=== PATIENT | male | born 1980 | race Caucasian/White ===

== ENCOUNTER 2016-06-30 21:08 | Observation (INO) | payer OTHER ==
[2016-06-30] MEDS ORDERED: fentaNYL 100 MCG/2 ML INJ IVP ONE (21:29)
[2016-06-30] MEDS ORDERED: ONDANSETRON 4 MG/2 ML VIAL IVP ONE (21:29)
[2016-06-30] MEDS ORDERED: NS 1,000 ML IV ONE (21:29)
--- NOTE | 2016-06-30 21:35 | EDPHY ---
H & P Smoking Status: Current every day smoker Time Seen by Provider: 06/30/16 21:21 HPI/ROS: CHIEF COMPLAINT: Nausea, vomiting, abdominal pain HISTORY OF PRESENT ILLNESS: 36-year-old male presents to the emergency department with abrupt onset of abdominal pain and vomiting. Symptoms began around 6:00 p.m. this evening. Patient states that when he got home from work this evening he was feeling nauseous. He had a beer and then tried to eat something and became extremely nauseous and vomited 6 or 7 times. He had a normal solid bowel movement. Denies diarrhea. No melena. No blood in his stool. He denies chest pain or difficulty breathing. He feels that the abdominal pain is colicky and comes and goes. He feels more of a dull ache currently. Denies reported trauma. Denies ill contacts. Denies recent travel. REVIEW OF SYSTEMS: Constitutional: No fever, no chills. Eyes: No double or blurry vision. ENT: No sore throat. Respiratory: No cough, no shortness of breath. Cardiac: No chest pain. Gastrointestinal: Abdominal pain, vomiting as above. No diarrhea. Genitourinary: No dysuria. Musculoskeletal: No neck or back pain. Skin: No rashes. Neurological: No headache. (Tracie Moorea M) Past Medical/Surgical History: negative (Tracie Moorea M) Social History: Single (Nilsa Moore M) Physical Exam: General Appearance: Alert, no distress. Eyes: Pupils equal and round. Extraocular motions are all intact. ENT: Mouth: Mucous membranes moist. Respiratory: No wheezing, rhonchi, or rales, lungs are clear to auscultation. Cardiovascular: Regular rate and rhythm. 100% on room air. Gastrointestinal: Abdomen is soft. Tenderness with palpation in the epigastric area as well as in the right upper quadrant. There is no rebound, guarding or masses noted. No CVA tenderness bilaterally. Neurological: Alert and oriented x 3, cranial nerves II through XII grossly intact Skin: Warm and dry, no rashes. Musculoskeletal: Nontender to palpate along the cervical, thoracic or lumbar spine. Neck is supple. Extremities: Full range of motion and no peripheral edema. Psychiatric: Patient is oriented X 3, there is no agitation. (Tracie Moorea M) Constitutional: Initial Vital Signs Heart Rate 70 05/18/17 21:14 Respiratory Rate 18 06/30/16 21:14 Blood Pressure 108/58 L 06/30/16 21:14 O2 Sat (%) 100 06/30/16 21:14 O2 Delivery Mode Nasal Cannula O2 (L/minute) 2 Allergies/Adverse Reactions: amoxicillin Allergy (Verified 06/30/16 21:19) Home Medications: Medication Instructions Recorded Ibuprofen [Motrin (*)] 200 mg PO DAILY PRN 07/01/16 oxyCODONE/APAP 5/325 [Percocet 1 - 2 tab PO Q4 PRN #0 tab 07/01/16 5/325 (*)] Medical Decision Making ED Course/Re-evaluation: 36-year-old male presents to the emergency department with nausea vomiting and abdominal pain. An IV was established and laboratory studies are pending. Patient was given 50 mcg of fentanyl IV and 4 mg of Zofran IV. He was also given IV normal saline. White blood cell count is over 20,000. His chemistries are unremarkable. CT imaging of the abdomen and pelvis was ordered given his abdominal pain, vomiting and elevated white blood cell count. CT scan reveals a fluid filled appendix measuring 9-10 mm with surrounding edema. Likely early appendicitis. Patient was kept NPO. He will be given 1 g of Invanz IV. Patient states that he was told he had amoxicillin allergy by his mother when he was little. However has had penicillin without any problems. On-call surgeon was paged. I spoke with Dr. Lázaro Carter, on-call general surgeon, who came to evaluate the patient and will take the patient to the operating room. Bed has been requested. The patient remains comfortable and does not require any additional pain medication at this time. (Nilsa Moore) Differential Diagnosis: Including but not limited to gastritis, cholecystitis, cholelithiasis, GERD, peptic ulcer disease (Nilsa Moore) Other Provider: The patient was evaluated and managed by the midlevel provider. I discussed the patient's presentation and course with the physician property assistant/ nurse practitioner and agree with the evaluation. My co-signature indicates that I have reviewed this chart and I agree with the findings and plan of care as documented. I am the secondary supervising physician. (Kaelyn Pimentel) - Data Points Laboratory Results: Laboratory Results 06/30/16 21:45 06/30/16 21:45 Medications Given: Discontinued Medications Fentanyl (Sublimaze) 50 mcg IVP EDNOW ONE Stop: 06/30/16 21:30 Last Admin: 06/30/16 22:03 Dose: 50 mcg Sodium Chloride (Ns) 1,000 mls @ 0 mls/hr IV ONCE ONE PRN Reason: Wide Open Stop: 06/30/16 21:30 Last Admin: 06/30/16 22:03 Dose: 1,000 mls Ertapenem 1 gm/ Sodium (Chloride) 100 mls @ 200 mls/hr IV EDNOW ONE PRN Reason: Protocol Stop: 07/01/16 00:11 Last Admin: 07/01/16 00:25 Dose: 100 mls Potassium Chloride/Dextrose/Sod Cl (D5w 1/2 Ns W/ 20 Kcl/L) 1,000 mls @ 100 mls /hr IV CONT CLAIR Stop: 12/28/16 00:59 Last Admin: 07/01/16 02:50 Dose: 1,000 mls Ertapenem 1 gm/ Sodium (Chloride) 100 mls @ 200 mls/hr IV DAILY CLAIR PRN Reason: Protocol Stop: 07/31/16 08:59 Last Admin: 07/01/16 09:41 Dose: 100 mls Ketorolac Tromethamine (Toradol) 15 mg IVP Q6 CLAIR Stop: 07/06/16 05:59 Last Admin: 07/01/16 12:34 Dose: 15 mg Ondansetron HCl (Zofran) 4 mg IVP EDNOW ONE Stop: 06/30/16 21:30 Last Admin: 06/30/16 22:04 Dose: 4 mg Departure - Departure Disposition: To OP Cath/Surgery Clinical Impression: Acute appendicitis Qualifiers: Acute appendicitis type: unspecified acute appendicitis type Qualified Code(s) : K35.80 - Unspecified acute appendicitis Condition: Good
[2016-06-30 21:59] LABS: % IMMATURE GRANULYOCYTES 0.5 % (0.0-1.1); ABSOLUTE IMMATURE GRANULOCYTES 0.11 10^3/uL (0.00-0.10); ADD DIFF? NO; ADD MORPH? NO; ADD SCAN? NO; ATYPICAL LYMPHOCYTE FLAG 0 (0-99); FRAGMENT RBC FLAG 0 (0-99); HEMATOCRIT 42.7 % (40.0-51.0); HEMOGLOBIN 15.6 g/dL (13.7-17.5); LEFT SHIFT FLG 0 (0-99); LIPEMIA HEMOLYSIS FLAG 90 (0-99); MEAN CELL HEMOGLOBIN CONCENTR. 36.5 g/dL (32.4-36.7); MEAN CELL VOLUME 87.7 fL (81.5-99.8); MEAN PLATELET VOLUME 10.1 fL (8.7-11.7); PLATELET CLUMPS FLAG 0 (0-99); PLATELET COUNT 231 10^3/uL (150-400); RED BLOOD CELL COUNT 4.87 10^6/uL (4.40-6.38); RED CELL DISTRIBUTION WIDTH 12.4 % (11.5-15.2)
[2016-06-30 22:16] LABS: ALANINE AMINOTRANSFERASE 27 IU/L (21-72); ALBUMIN 5.2 g/dL (3.5-5.0); ALKALINE PHOSPHATASE 64 IU/L (38-126); ANION GAP 16 mEq/L (8-16); ASPARTATE AMINOTRANSFERASE 25 IU/L (17-59); BILIRUBIN,TOTAL 0.8 mg/dL (0.1-1.4); BILIRUBIN-CONJUGATED 0.5 mg/dL (0.0-0.5); BILIRUBIN-UNCONJUGATED 0.3 mg/dL (0.0-1.1); CALCIUM 9.9 mg/dL (8.5-10.4); CARBON DIOXIDE 20 mEq/l (22-31); CHLORIDE 102 mEq/L (97-110); CREATININE 0.8 mg/dL (0.7-1.3); GLOMERULAR FILTRATION RATE > 60; GLUCOSE 137 mg/dL (70-100); POTASSIUM 3.5 mEq/L (3.5-5.2); SODIUM 138 mEq/L (134-144); TOTAL PROTEIN 7.8 g/dL (6.3-8.2)
[2016-06-30] MEDS ORDERED: IOPAMIDOL (ISOVUE-300) 100 ML BTL ONE (22:37)
[2016-06-30] MEDS ORDERED: ERTAPENEM 1 GM in NS 100 ML IV ONE (23:42)
[2016-07-01] MEDS ORDERED: BUPIVACAINE 0.5% 30 ML SDV ONE (00:46)
--- NOTE | 2016-07-01 00:55 | PDGENHP ---
History and Physical History and Physical: 36-YEAR-OLD MALE [place] [address] SCAN ADMIT FOR LAPAROSCOPIC APPENDECTOMY. RISKS AND OPTIONS FLUIDS GROSS PAST HISTORY IS NEGATIVE FOR ANY SURGERY OR MAJOR HOSPITALIZATIONS REVIEW OF SYSTEMS NEGATIVE ON A COMPLETE 10 POINT REVIEW MEDICATIONS NONE NO KNOWN ALLERGIES HEENT NEGATIVE SHOWS CLEAR AND SYMMETRIC COR WAS REGULAR RHYTHM ABDOMEN IS SOFT WITH TENDERNESS IN THE RIGHT LOWER QUADRANT EXTREMITIES ARE BENIGN IMPRESSION ACUTE APPENDICITIS PLANNED LAB APPENDECTOMY
[2016-07-01] MEDS ORDERED: ONDANSETRON 4 MG/2 ML VIAL IVP PRN (00:57)
[2016-07-01] MEDS ORDERED: OXYCODONE/APAP 5/325 TAB PO PRN (00:57)
[2016-07-01] MEDS ORDERED: HYDROmorphONE/DILAUDID 1 MG/ML SYR IVP PRN (00:57)
[2016-07-01] MEDS ORDERED: D5W 1/2 NS W/ 20 KCl/L 1,000 ML IV SCH (01:00)
[2016-07-01] MEDS ORDERED: PROPOFOL 200 MG/20 ML VIAL ONE (01:10)
[2016-07-01] MEDS ORDERED: LIDOCAINE 2% 5 ML SDV ONE (01:10)
[2016-07-01] MEDS ORDERED: fentaNYL 100 MCG/2 ML INJ ONE ×2 (01:10→01:41)
[2016-07-01] MEDS ORDERED: MIDAZOLAM 2 MG/2 ML VIAL ONE (01:13)
[2016-07-01] MEDS ORDERED: ROCURONIUM 50 MG/5 ML VIAL ONE (01:27)
[2016-07-01] MEDS ORDERED: DEXAMETHASONE 4 MG/ML VIAL ONE (01:28)
[2016-07-01] MEDS ORDERED: ONDANSETRON 4 MG/2 ML VIAL ONE (01:28)
[2016-07-01] MEDS ORDERED: SUGAMMADEX SODIUM 200 MG/2 ML VIAL IVP ONE (01:47)
--- NOTE | 2016-07-01 02:04 | POSTOPPROG ---
Post Op Note Date of Operation: 07/01/16 Surgeon: Brandin Carter Anesthesiologist: mickey Pre-op Diagnosis: acute appe Post-op Diagnosis: same Indication: pain Procedure: lap appe Findings: early appendicitis Inf/Abcess present in the surg proc area at time of surgery?: Yes Depth: Organ Space EBL: Minimal Complications: 0 Specimen(s): appendix
--- NOTE | 2016-07-01 02:06 | GHP ---
[f rep st] PREOP HISTORY AND PHYSICAL DATE OF ADMISSION: 07/01/2016 HISTORY OF PRESENT ILLNESS: A 36-year-old male with pain for approximately 8 hours in the right low er quadrant associated with nausea and vomiting. He has had some anorexia all day. Came to the ER with right lower quadrant pain. CT scan is positive for appendicitis. His white count is 20,000. He is admitted at this time for laparoscopic appendectomy. Risks and options have been fully discus sed, and he wishes to proceed. He has had no diarrhea. No abdominal trauma. PAST MEDICAL HISTORY: Includes no major surgeries or hospitalizations. REVIEW OF SYSTEMS: Reveals no major medical problems on a full complete review of systems. SOCIAL HISTORY: He does smoke. ALLERGIES: Amoxicillin. MEDICATIONS: None. PHYSICAL EXAMINATION: GENERAL: This is an alert 36-year-old male, in no acute distress. HEAD and NECK: Benign without icterus or adenopathy. CHEST: Clear to auscultation and percussion. CARDIAC : Regular rhythm. ABDOMEN: Soft. He is tender in the right lower quadrant with some rebound. GE NITALIA: Normal. There are no hernias. EXTREMITIES: Benign with full pulses. NEUROLOGIC: Physi ologic. IMPRESSION: Acute appendicitis. PLAN: Laparoscopic appendectomy. Risks and options have been fully discussed. He wishes to procee d. /[id number]/MODL
[2016-07-01] MEDS: KETOROLAC 15 MG/1 ML SDV IVP SCH ×2 (06:20→12:34)
[2016-07-01 08:24] VITALS: PULSE 46; RESP 14; TEMP 97.8; O2SAT 97
[2016-07-01 08:28] VITALS: BP 103/60
--- NOTE | 2016-07-01 08:52 | GOP ---
[f rep st] OPERATIVE REPORT DATE OF OPERATION: 07/01/2016 SURGEON: Brandin Carter MD PARACHUTE MARKER: None. ANESTHESIOLOGIST: Dr. Gold. PREOPERATIVE DIAGNOSIS: Acute appendicitis. POSTOPERATIVE DIAGNOSIS: Acute appendicitis. PROCEDURE PERFORMED: Laparoscopic appendectomy. FINDINGS: Patient has acute nonperforated appendicitis. ESTIMATED BLOOD LOSS: Negligible. DESCRIPTION OF PROCEDURE: Patient was taken to the operating room where he received satisfactory ge neral endotracheal anesthesia by Dr. Gold and placed in supine position, prepped and draped in usua l sterile fashion. A periumbilical incision was made. A Veress needle inserted. Pneumoperitoneum was established. Trocar was introduced. Laparoscope introduced. Good visualization was obtained. Two other trocars were placed in the lower abdomen under direct vision. The appendix was elevated up and mesoappendix was divided with the Harmonic Scalpel until the base was skeletonized. It was d ivided with an Endo-AKASH stapler and placed in a specimen bag and extracted through the upper midline port site. Hemostasis was assured. Trocars were removed under direct vision. Trocar sites were c losed with 0 Vicryl for the fascia, 4-0 Monocryl subcuticular stitch for the skin. All layers were infiltrated with 0.5% Marcaine. He tolerated the procedure well, taken to the recovery room in good condition. COMPLICATIONS: No complications. /[id number]/MODL
[2016-07-01] MEDS ORDERED: ERTAPENEM 1 GM in NS 100 ML IV SCH (09:00)
== END 2016-07-01 12:44 | disposition home or self-care (01) ==
LOC: F2W 07-01 02:30
PROVIDERS: ADMIT Surgery; ATTEND Surgery
PROC: 0DTJ4ZZ Resection of Appendix, Percutaneous Endoscopic Approach (ICD-10-PCS; principal; 2016-07-01 01:15)
DX: K35.80 Unspecified acute appendicitis (principal)
CPT/HCPCS: 44970; 74177; G0378; 96365; J1100; J1335; J1885; J2250; J2405; J2704; J3010; Q9967